=== PATIENT | female | born 1960 | race Caucasian/White ===

== ENCOUNTER 2018-10-12 16:31 | Emergency (ER) | payer MEDICAID ==
[~2018-10-12] VITALS: Ht 170.2 cm; Wt 113.9 kg
[2018-10-12 16:33] VITALS: BP 176/105
== END 2018-10-12 16:59 | disposition home or self-care (01) ==
LOC: ED 16:40
DX: K04.7 Periapical abscess without sinus (principal); I10 Essential (primary) hypertension; E03.9 Hypothyroidism, unspecified
CPT/HCPCS: 99283

== ENCOUNTER 2018-10-19 16:49 | Emergency (ER) | payer MEDICAID ==
[~2018-10-19] VITALS: Ht 170.2 cm; Wt 111.2 kg
[2018-10-19 18:26] LABS: ALANINE AMINOTRANSFERASE 44 U/L (12-78); ALBUMIN 3.9 g/dL (3.4-5.0); ANION GAP 8 mmol/L (5-15); CHLORIDE 109 mmol/L (98-107); CREATININE 0.92 mg/dL (0.55-1.02)
[2018-10-19 18:30] LABS: ALKALINE PHOSPHATASE 97 U/L (45-117); BILIRUBIN,TOTAL 0.5 mg/dL (0.2-1.0); TOTAL PROTEIN 8.3 g/dL (6.4-8.2); TROPONIN I < 0.015 ng/mL (0.000-0.045)
[2018-10-19 18:46] LABS: BASOPHILS # (AUTO) 0.05 x10^3/uL (0-0.1); BASOPHILS % (AUTO) 0 % (0-1); EOSINOPHILS # (AUTO) 0.16 x10^3/uL (0-0.4); EOSINOPHILS % (AUTO) 1 % (1-7); LYMPHOCYTES # (AUTO) 3.16 x10^3/uL (1-3.4); LYMPHOCYTES % (AUTO) 28 % (22-44); MD NO; MEAN CORPUSCULAR HEMOGLOBIN 29.9 pg (27.0-34.8); MEAN PLATELET VOLUME 7.8 fL (7.4-10.4); MONOCYTES # (AUTO) 0.88 x10^3/uL (0.2-0.8); MONOCYTES % (AUTO) 8 % (2-9); NEUTROPHILS # (AUTO) 7.22 x10^3/uL (1.8-6.8); NEUTROPHILS % (AUTO) 63 % (42-75); PLATELET COUNT 587 x10^3/uL (130-400); RED BLOOD COUNT 5.18 x10^6/uL (3.82-5.3); RED CELL DISTRIBUTION WIDTH 14.1 % (9.6-15.2)
--- NOTE | 2018-10-19 19:42 | NUR ---
PT TO ROOM FROM LOBBY
--- NOTE | 2018-10-19 20:00 | NUR ---
PT TO ED FOR INTERMITTENT LABORED BREATHING WTIH NO CAUSE AND NO RELEVEING FACTORS X4 DAYS. EPISODES HAVE BEEN GETTING MORE COMMON IN THE LAST DAY. PT STATES EPISODES HAPPEN DURING REST AND MOVEMENT AND HER CHEST FEELS "WEIRD" AND CANNOT DESCRIBE. PT PRESENTS WITH UNLABORED BREATHING WHILE RESTING AND AMBULATING AND O2 SAT GREATER THAN 95 ON RA. CONNECTED TO ALL MONITORS. VSS. NO NEEDS AT THIS TIME. CALL LIGHT WITHIN REACH. LABS AND XRAY RESULTED. AWAITING MD ASSESSMENT.
[2018-10-19 20:31] VITALS: BP 134/77
--- NOTE | 2018-10-19 20:32 | NUR ---
PT RESTING IN ROOM WATCHING TV WITH FAMILY AT BEDSIDE. NO NEEDS AT THIS TIME. CALL LIGHT WITHIN REACH. AWAITING EDMD ASSESSMENT.
--- NOTE | 2018-10-19 20:39 | NUR ---
PA TO BEDSIDE.
== END 2018-10-19 21:29 | disposition home or self-care (01) ==
LOC: ED 21:20
DX: J45.909 Unspecified asthma, uncomplicated (principal)
CPT/HCPCS: 36415; 71045; 80053; 84484; 85025; 93005; 99284